=== PATIENT | male | born 1985 | race Caucasian/White ===

== ENCOUNTER 2018-03-26 12:28 | Emergency (ER) | payer OTHER, SELFPAY ==
[~2018-03-26] VITALS: Ht 170.2 cm; Wt 52.0 kg
[2018-03-26] MEDS ORDERED: LIDOCAINE-MPF 1%, 5ML ONE (13:15)
[2018-03-26] MEDS ORDERED: OXYcodone/APAP 10/325MG TABLET ONE (13:15)
[2018-03-26] MEDS ORDERED: DIPH,PERTUSS(ACELL),TET VAC/PF 0.5 ML IM-VACC ONE ×2 (13:16→13:30)
[2018-03-26] MEDS ORDERED: OXYcodone/APAP 10/325MG TABLET PO ONE (13:30)
[2018-03-26] MEDS ORDERED: LIDOCAINE-MPF 1%, 5ML INFIL ONE (13:30)
[2018-03-26 15:25] VITALS: BP 122/67
[2018-03-26] MEDS ORDERED: BACITRACIN ZINC OINT 500U/GM, 0.9 GM ONE (15:50)
== END 2018-03-26 16:35 | disposition home or self-care (01) ==
LOC: ED 14:26
DX: S62.634B Displaced fracture of distal phalanx of right ring finger, initial encounter for open fracture (principal); X58.XXXA Exposure to other specified factors, initial encounter; Y93.89 Activity, other specified; Y92.009 Unspecified place in unspecified non-institutional (private) residence as the place of occurrence of the external cause; Y99.8 Other external cause status
CPT/HCPCS: 12041; 29130; 90471; 90715; 99284

== ENCOUNTER 2018-04-04 06:25 | Emergency (ER) | payer SELFPAY ==
[~2018-04-04] VITALS: Ht 170.2 cm; Wt 75.0 kg
[2018-04-04 06:32] VITALS: BP 127/86
== END 2018-04-04 07:17 | disposition home or self-care (01) ==
LOC: ED 07:11 → MERGE 07:15 → ED 07:17
DX: S61.214D Laceration without foreign body of right ring finger without damage to nail, subsequent encounter (principal); Z87.891 Personal history of nicotine dependence
CPT/HCPCS: 99281